=== PATIENT | female | born 1940 | race Caucasian/White ===

== ENCOUNTER 2016-07-22 15:22 | Emergency (ER) | payer OTHER ==
[~2016-07-22] VITALS: Ht 170.2 cm; Wt 70.0 kg
[~2016-07-22 15:22] MED LIST: BIMA2.5D EACHEYE; CELE200C PO; CITA40TA5 PO; CLOP75TA22 PO; CYAN1TAB5 PO; FOLI-17 PO; HYDR200T PO; SULF500T36 PO; VIT1CAPS42 PO; [UNRECOGNIZED DRUG - CODE] PO
[2016-07-22 17:02] LABS: ASPARTATE AMINO TRANSFERASE 20 U/L (15-37); BLOOD UREA NITROGEN 12 mg/dL (7-18)
[2016-07-22] MEDS ORDERED: CLOP75TA22 PO (17:46)
[2016-07-22 18:48] VITALS: BP 149/73
== END 2016-07-22 19:31 | disposition home or self-care (01) ==
LOC: ED 18:17
DX: R60.0 Localized edema (principal); M79.672 Pain in left foot; M79.671 Pain in right foot; M25.572 Pain in left ankle and joints of left foot; M25.571 Pain in right ankle and joints of right foot
CPT/HCPCS: 36415; 80053; 85025; 85610; 93970